=== PATIENT | female | born 1945 | race American Indian/Alaskan Native ===

== ENCOUNTER 2017-04-29 12:55 | Outpatient (CLI) | payer MEDICARE ==
--- NOTE | 2017-04-29 14:57 | XRay Report ---
XRAY RIGHT FOOT THREE VIEWS: 04/29/17 12:55:00 CLINICAL: Right foot pain. COMPARISON: 03/05/09 FINDINGS: Moderate osteopenia. Hallux valgus deformity is not significantly changed compared to the prior exam. Arthritis at the first MTP joint with no erosions. There is slight medial subluxation of the proximal phalanx of the great toe relative to the first metatarsal. Chronic dislocation at the second and third MTP joints is not significantly changed compared to the prior exam. No fracture. Pes planus deformity is new. Moderate soft tissue swelling of the dorsum of the midfoot and forefoot. Vascular calcifications. No soft tissue air or foreign body. A small Achilles tendon enthesophyte. IMPRESSION: Chronic dislocations at the second and third MTP joints. Stable mild subluxation at the first MTP joint and mild arthritis at the first MTP joint. Non-specific soft tissue swelling. Achilles enthesopathy.
== END 2017-04-29 12:56 | disposition home or self-care (01) ==
LOC: SPVIMAG 12:55
PROVIDERS: ATTEND Orthopaedic Surgery Sports Medicine
DX: M19.071 Primary osteoarthritis, right ankle and foot (principal); M20.11 Hallux valgus (acquired), right foot; S93.101A Unspecified subluxation of right toe(s), initial encounter; M76.61 Achilles tendinitis, right leg; M85.871 Other specified disorders of bone density and structure, right ankle and foot; M25.871 Other specified joint disorders, right ankle and foot; X58.XXXA Exposure to other specified factors, initial encounter; Y93.89 Activity, other specified; Y92.89 Other specified places as the place of occurrence of the external cause; Y99.8 Other external cause status